=== PATIENT | female | born 1975 | race Caucasian/White ===

== ENCOUNTER 2016-08-16 20:29 | Emergency (ER) | payer OTHER ==
[~2016-08-16] VITALS: Ht 167.6 cm; Wt 83.5 kg
[~2016-08-16 20:29] MED LIST: CEPHALEXIN 500500 M1; CLEOCIN HCL300 MG PO; CODEINE SULFATE15 MG PO; NAPROSYN500 MG PO
[2016-08-16] MEDS ORDERED: NAPROSYN500 MG PO (21:38)
[2016-08-16 21:45] VITALS: BP 136/87
== END 2016-08-16 21:39 | disposition home or self-care (01) ==
LOC: ER 20:29
DX: S93.602A Unspecified sprain of left foot, initial encounter (principal); F17.210 Nicotine dependence, cigarettes, uncomplicated; F10.99 Alcohol use, unspecified with unspecified alcohol-induced disorder; F12.10 Cannabis abuse, uncomplicated; Z88.5 Allergy status to narcotic agent; X58.XXXA Exposure to other specified factors, initial encounter; Y93.89 Activity, other specified; Y92.89 Other specified places as the place of occurrence of the external cause; Y99.8 Other external cause status

== ENCOUNTER 2017-11-22 19:51 | Emergency (ER) | payer OTHER ==
[~2017-11-22] VITALS: Ht 167.6 cm; Wt 86.6 kg
[2017-11-22] MEDS ORDERED: AZITHROMYCIN 2250 MG PO (21:34)
[2017-11-22] MEDS ORDERED: EFFEXOR 5050 MG/1 T1 PO (21:35)
[2017-11-22] MEDS ORDERED: LISINOPRIL-HCT1 EACH PO (21:35)
[2017-11-22] MEDS ORDERED: LAMICTAL200 MG PO (21:35)
[2017-11-22] MEDS ORDERED: NEURONTIN 300300 M1 PO (21:36)
[2017-11-22] MEDS ORDERED: CLONAZEPAM 0.50.5 M1 PO (21:36)
[2017-11-22 21:37] LABS: URINE BILIRUBIN NEGATIVE (Negative); URINE BLOOD NEGATIVE (Negative); URINE CLARITY CLEAR; URINE COLOR YELLOW; URINE GLUCOSE-RANDOM* NEGATIVE (Negative); URINE KETONES NEGATIVE (Negative); URINE LEUKOCYTES-REFLEX NEGATIVE (Negative); URINE NITRITE-REFLEX NEGATIVE (Negative); URINE PROTEIN (DIPSTICK) NEGATIVE (Negative); URINE SPECIFIC GRAVITY >= 1.030 (1.005-1.035); URINE UROBILINOGEN 0.2 E.U./dl (0.2-1.0)
[2017-11-22 22:25] LABS: AMP/METHAMP Negative (Negative); BARBITURATES Negative (Negative); BENZODIAZEPINES Negative (Negative); COCAINE Negative (Negative); METHADONE Negative (Negative); OPIATES Negative (Negative); PCP Negative (Negative)
[2017-11-22 23:48] LABS: ABSOLUTE NEUTROPHILS 3.9 thou/uL (1.4-8.2); BASOPHILS 0.4 % (0.0-2.0); EOSINOPHILS 0.4 % (0.0-3.0); HEMOGLOBIN 12.3 gm/dL (12.0-15.0); LYMPHOCYTES 18.3 % (24.0-44.0); MCH 29.8 pg (26.0-34.0); MCV 87.4 fL (80.0-100.0); MONOCYTES 8.3 % (1.0-8.0); PLATELET COUNT 230 thou/uL (150-400); POLYS 72.6 % (36.0-66.0); RBC 4.12 mil/uL (4.20-5.00); RDW 14.7 % (10.5-14.5); WBC 5.4 thou/uL (4.0-11.0)
[2017-11-22 23:56] LABS: CALCIUM 8.3 mg/dL (8.5-10.1); CREATININE 0.7 mg/dL (0.6-1.0); POTASSIUM 3.3 mmol/L (3.5-5.1)
[2017-11-22] MEDS ORDERED: ONDANSETRON HCL4 M2 PO (23:56)
[2017-11-23 00:03] LABS: ALBUMIN 2.9 g/dL (3.4-5.0); TOTAL BILIRUBIN 0.2 mg/dL (<0.1-1.0); TOTAL PROTEIN 6.1 g/dL (6.4-8.2)
[2017-11-23 00:24] VITALS: BP 141/71
== END 2017-11-23 00:24 | disposition home or self-care (01) ==
LOC: ER 19:51
PROVIDERS: Nurse Practitioner Family
DX: K52.9 Noninfective gastroenteritis and colitis, unspecified (principal); F17.210 Nicotine dependence, cigarettes, uncomplicated; Z88.8 Allergy status to other drugs, medicaments and biological substances; Z98.890 Other specified postprocedural states; Z90.89 Acquired absence of other organs